=== PATIENT | female | born 2000 | race Caucasian/White ===

== ENCOUNTER 2020-06-17 02:00 | Emergency (ER) | payer OTHER ==
[2020-06-17 02:38] LABS: Bilirubin Neg (Negative); Blood, Urine Negative (Negative); Clarity Clear (Clear); Glucose, Urine (Dipstick) Normal (Negative); Ketone, Urine Negative (Negative); Leukocyte 25 (Negative); Nitrite Negative (Negative); Protein, Urine (Dipstick) Negative (Neg-Trace); Urobilinogen Normal mg/dL (Less than 2)
[2020-06-17 02:41] LABS: Bacteria/HPF None Seen HPF (None Seen); Mucous/LPF None Seen LPF (<2+); Other Microscopic Description Less than 2 mL rec'd; RBC/HPF None Seen HPF (0-3); Squamous Epithelial 0-3 HPF (0-3); WBC/HPF 0-3 HPF (0-3)
== END 2020-06-17 03:27 | disposition home or self-care (01) ==
LOC: CSHERS 02:00
DX: O99.891 Other specified diseases and conditions complicating pregnancy (principal); R10.30 Lower abdominal pain, unspecified; Z3A.15 15 weeks gestation of pregnancy
CPT/HCPCS: 76815; 81003; 81015

== ENCOUNTER 2020-11-20 17:10 | Day surgery (SDC) | payer OTHER ==
[2020-11-20 17:20] VITALS: BMI 27.4
[2020-11-20 20:12] LABS: Fetal Membranes Rupture No Membranes Rupture (No Rupture)
[2020-11-20 20:23] LABS: Bilirubin Neg (Negative); Blood, Urine Negative (Negative); Clarity Clear (Clear); Glucose, Urine (Dipstick) Normal (Negative); Ketone, Urine Negative (Negative); Leukocyte Negative (Negative); Nitrite Negative (Negative); Protein, Urine (Dipstick) Negative (Neg-Trace); Specific Gravity, Urine 1.015 (1.002-1.036); Urobilinogen Normal mg/dL (Less than 2)
[2020-11-20 20:31] LABS: Amphetamine Not Detected (NotDetected); Barbiturates Screen Not Detected (NotDetected); Benzodiazepine Screen Not Detected (NotDetected); Cocaine Metabolite Screen Not Detected (NotDetected); Methadone Not Detected (NotDetected); Methamphetamine Not Detected (NotDetected); Opiate Screen Not Detected (NotDetected); Oxycodone Screen Not Detected (NotDetected); Phencyclidine (PCP) Not Detected (NotDetected); THC/Cannabinoid Screen Detected (NotDetected); Tricyclic Screen Not Detected (NotDetected)
[2020-11-20 20:36] LABS: Bacteria/HPF None Seen HPF (None Seen); RBC/HPF None Seen HPF (0-3); Squamous Epithelial 0-3 HPF (0-3); Urine Culture Reflex No No; WBC/HPF None Seen HPF (0-3)
[2020-11-20] MEDS ORDERED: hydrALAZINE 20 MG/ML VIAL SLOW IVP PRN (21:01)
[2020-11-20 22:13] LABS: #Eosinphils 0.1 10x3/uL (0.0-0.5); #Monocytes 0.6 10x3/uL (0.0-1.1); #Neutrophils 5.9 10x3/uL (1.5-8.4); %Basophils 0.2 % (0.0-2.0); %Lymphocytes 22.9 % (18.0-47.0); %Monocytes 7.3 % (0.0-10.0); Hemoglobin 9.8 g/dL (12.0-15.5); Mean Corpuscular HGB CONC 32.7 g/dL (32.0-36.0); Mean Corpuscular Hemoglobin 30.1 pg (27.0-33.0); Mean Platelet Volume 9.8 fl (7.4-10.4); Platelet Count 240 10x3/uL (150-450); RBC Distribution Width 14.4 % (11.5-14.5); Red Blood Cell (RBC) Count 3.26 10x6/uL (3.90-5.03); White Blood Cell (WBC) Count 8.6 10x3/uL (3.5-10.5)
[2020-11-20 22:26] LABS: ALT (SGPT) 8 U/L (8-55); AST (SGOT) 11 U/L (5-34); Alkaline Phosphatase 145 U/L (40-100); Anion Gap 14 mmol/L (10-20); BUN (Urea Nitrogen) 4 mg/dL (7.0-18.7); Bilirubin, Total 0.2 mg/dL (0.2-1.2); Calc. Creatinine Clearance 161 mL/min (70-130); Calcium 8.7 mg/dL (7.8-10.44); Carbon Dioxide 19 mmol/L (22-29); Chloride 109 mmol/L (98-107); Globulin 2.7 g/dL (2.4-3.5); Glucose 129 mg/dL (70-105); Potassium 3.3 mmol/L (3.5-5.1); Protein, Total 5.7 g/dL (6.0-8.3); Sodium 139 mmol/L (136-145)
[2020-11-20 22:46] LABS: HIV (1/2) Antibody/Antigen Non-Reactive (NonReactive); HIV 1/2 INDEX 0.08 S/CO (<1.00); Syphilis Antibody Nonreactive (Nonreactive); Syphilis Antibody Index 0.02 S/CO (<1.00 Non-Reactive)
[2020-11-24 21:48] LABS: Chlam.trachomatis by PCR,Urine Not Detected (NotDetected)
== END 2020-11-20 22:15 | disposition home or self-care (01) ==
LOC: CSHLD/OP 17:10
PROVIDERS: ATTEND Obstetrics & Gynecology
DX: O47.1 False labor at or after 37 completed weeks of gestation (principal); O98.813 Other maternal infectious and parasitic diseases complicating pregnancy, third trimester; O99.353 Diseases of the nervous system complicating pregnancy, third trimester; O99.343 Other mental disorders complicating pregnancy, third trimester; O09.33 Supervision of pregnancy with insufficient antenatal care, third trimester; O99.891 Other specified diseases and conditions complicating pregnancy; B37.3 Candidiasis of vulva and vagina; G43.909 Migraine, unspecified, not intractable, without status migrainosus; F41.1 Generalized anxiety disorder; F31.9 Bipolar disorder, unspecified; R55 Syncope and collapse; Z91.048 Other nonmedicinal substance allergy status; Z3A.38 38 weeks gestation of pregnancy
CPT/HCPCS: 36415; 76815; 80306; 81001; 84112; 86780; 87081; 87389; 87480; 87491; 87510; 87591; 87660; 96360; 96361; 99285

== ENCOUNTER 2022-09-02 04:22 | Emergency (ER) | payer OTHER ==
[2022-09-02] MEDS ORDERED: Ondansetron ODT 4 MG TAB ONE (04:46)
[2022-09-02] MEDS ORDERED: Acetaminophen 500 MG TAB ONE (04:46)
== END 2022-09-02 04:50 | disposition home or self-care (01) ==
LOC: CSHERS 04:22
DX: T43.591A Poisoning by other antipsychotics and neuroleptics, accidental (unintentional), initial encounter (principal)
CPT/HCPCS: 93005; 99283; Q0162

== ENCOUNTER 2022-09-17 03:27 | Emergency (ER) | payer OTHER ==
[2022-09-17] MEDS ORDERED: Bacitracin 1 PK ONE (04:36)
== END 2022-09-17 04:36 | disposition home or self-care (01) ==
LOC: CSHERS 03:27
DX: T81.49XA Infection following a procedure, other surgical site, initial encounter (principal)
CPT/HCPCS: 99283

== ENCOUNTER 2024-01-23 19:56 | Emergency (ER) | payer SELFPAY | END 2024-01-23 21:05 | disposition home or self-care (01) | LOC: CSHERS 19:56 | DX: G89.18 Other acute postprocedural pain (principal); M79.601 Pain in right arm; M25.531 Pain in right wrist | CPT/HCPCS: 29125; 99283 ==